=== PATIENT | female | born 1990 | race Caucasian/White ===

== ENCOUNTER 2018-08-20 06:53 | Day surgery (SDC) | payer OTHER ==
[2018-08-17 14:18] LABS: Absolute Lymphocytes (CBC) 1.7 K/uL (0.7-4.9); Basophils % 0.2 % (0-1.3); Eosinophils % 0.4 % (0-4.4); Hematocrit 44.7 % (36.0-45.0); Lymphocytes % 18.1 % (15.3-44.8); Monocytes % 5.2 % (3.3-12.3); RBC Red Blood Cell Count 4.79 M/uL (3.86-4.86)
[2018-08-17 14:22] LABS: Urine Appearance CLEAR; Urine Bilirubin NEGATIVE (NEG); Urine Blood NEGATIVE (NEG); Urine Color YELLOW; Urine Glucose NEGATIVE (NEG); Urine Protein NEGATIVE (NEG); Urine Specific Gravity 1.015 (1.005-1.030); Urine Urobilinogen 0.2 mg/dL (0.2-1.0); Urine pH 6.5 (5.0-7.0)
[2018-08-17 14:35] LABS: Urine Microscopic Reflex NO UMIC
--- OUTSIDE RECORDS SUMMARY | 2018-08-20 06:56 | XMS REPORT ---
:1990 [facility] Address [address] [place] [address] Dr. Sommers [address] [place] [id number] Care Team Providers Name Role Phone Unavailable Unavailable Unavailable Problems This patient has no known problems. Allergies, Adverse Reactions, Alerts This patient has no known allergies or adverse reactions. Medications This patient has no known medications.
[2018-08-20 07:10] LABS: Specific Gravity 1.025 (1.005-1.030)
[2018-08-20] MEDS ORDERED: NA CHLORIDE 0.9% 1,000 ML ONE (07:22)
[2018-08-20] MEDS ORDERED: PROPOFOL 200 MG/20 ML VIAL IV ONE (07:39)
[2018-08-20] MEDS ORDERED: ROCURONIUM 50 MG/5 ML VIAL IV ONE (07:39)
[2018-08-20] MEDS ORDERED: DEXAMETHASONE 10 MG/ML VIAL ONE (07:39)
[2018-08-20] MEDS ORDERED: FENTANYL CITR 250 MCG/5 ML ONE (07:39)
[2018-08-20] MEDS ORDERED: LIDOCAINE 2% MPF 5 ML VIAL ONE (07:39)
[2018-08-20] MEDS ORDERED: Ringers Lactate 1,000 ML IV ONE ×2 (07:41→09:53)
[2018-08-20] MEDS ORDERED: MIDAZOLAM HCL 2 MG/2 ML INJ ONE (07:42)
[2018-08-20] MEDS ORDERED: SCOPOLAMINE HYDROBROMIDE PATCH TD ONE (07:43)
[2018-08-20] MEDS: METHYLENE BLUE 0.5% 10 ML AMP ONE ×2 (09:39→09:45)
[2018-08-20] MEDS ORDERED: KETOROLAC 30 MG/ML INJ ONE (09:59)
[2018-08-20] MEDS ORDERED: Mastisol Adhesive Liq ONE (10:21)
[2018-08-20] MEDS: HYDROMORPHONE HCL 1 MG/ML INJ ONE ×4 (10:40→11:05)
[2018-08-20] MEDS ORDERED: IBUPROFEN 200 MG TAB PO ONE (12:01)
[2018-08-20] MEDS ORDERED: IBUPROFEN 400 MG TAB ONE (12:02)
--- NOTE | 2018-08-21 00:20 | OP ---
Date of Procedure: 08/20/2018 Surgeon: Starla Barakat MD Preoperative Diagnoses: Menorrhagia; dysmenorrhea; right lower quadrant pain; and right ovarian cyst , 4 cm. Postoperative Diagnoses: Menorrhagia, dysmenorrhea, right lower quadrant pain, left ovarian cyst, an d polycystic right ovary. Procedures Performed: Diagnostic hysteroscopy; diagnostic laparoscopy with lysis of adhesions of the sigmoid to the left round ligament; bilateral ovarian cysts; hemorrhagic left and right ovarian cyst , not consistent with endometriosis; left ovarian cyst removal; drainage of bilateral ovarian cysts; and chromotubation. Anesthesia: General endotracheal. Specimens: Left ovarian cyst contents. Complications: No complications. Drains: No drains. The patient's condition is stable. Findings: No endometriosis on close inspection of the entire pelvic peritoneum, posterior cul-de-sac , anterior cul-de-sac including the broad ligament anteriorly and posteriorly and both lateral arce and the anterior abdominal wall. The appendix appeared to be completely unremarkable. Both ovaries as described. Tubes patent without any dilation or hydrosalpinges when dilute methylene blue was inj ected. The patient's endometrial cavity was undistorted. Both tubal ostia were well visualized and the endo metrium appeared to be unremarkable. Indication: The patient is a 28-year-old, 0 and had constant relationship for about 7 years, complaining of right lower quadrant pain, seen in the ER prior to her new patient visit with me. Fo und to have a 4 cm hemorrhagic right ovarian cyst. Given the fact that the patient has pain and has persistent dysmenorrhea, occasional deep dyspareunia in midcycle time related to ovulation at times. Her periods have gotten slightly infrequent about every 2 to 3 months in the past few years after sh e has gained some weight. 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 On clinical evaluation at the initial visit when she followed up from her ER visit, there was a 5 cm right adnexal mass which was tender and there was tenderness to the exam in the right lower quadrant at the time without any significant rebound. However, on review of the imaging from the ER, she was found to have a complex cyst on the right ovary. Nothing else was visualized on the left. Also discussed about the options of treatment with this patient and she also complained of infertilit y primary without any significant medical problems with her or herself. Her plan was to [facility] observe with ovulation suppression since the pain is significant versus diagnostic laparoscopy to rule out endometriosis. She has significant family history of endometriosis in the maternal grandmot her and her sister, so this patient wants to pursue fertility using the contraceptive medication, was not an option for her. She preferred to proceed with surgical treatment. Diagnostic hysteroscopy was to confirm the cavity integrity and to make sure that there was no intrac avitary lesions. Sampling was not indicated in this patient at this time. She was also consented fo r diagnostic laparoscopy at the same time. If there is endometriosis present, then we would excise t hat as well. She was consented for ovarian cyst removal on the right ovary if present and chromotuba tion to see if any hydrosalpinges or blockage of tubes were contributing to her pain. This would also confirm the patency of the tubes, which could assist in her fertility efforts in the future. Procedure In Detail: After informed consent was verified, the patient was taken back to OR, placed i n a supine fashion on the operating table. After general anesthesia was given, she was placed in a d orsal lithotomy position. No antibiotics were given. SCDs were placed. Abdomen, vulva, vagina, and perineum were prepped and draped in a sterile fashion. A speculum was placed to expose the cervix. Anterior lip grasped with 2 Allis clamps. Diagnostic SlimLine hysteroscope was introduced. Cavity unremarkable. Endometrium unremarkable. Scope removed. Diagnostic VCare introduced. Hargrove introdu trice and attached to a drainage bag, this area was draped. A 1 cm infraumbilical incision was made al alina the old scar for her gallbladder. Fascia was incised, tagged with 0 Vicryl sutures, peritoneum e ntered sharply with the knife. S retractors placed inside the peritoneal cavity. Jonh introduced. Insufflation done adequately. The patient placed in T-[place]. A 5 mm suprapubic and left lower quadrant ports were placed. The upp er peritoneal surfaces were completely unremarkable. Liver unremarkable as well. Gallbladder was ab sent. No significant scar tissue seen. After patient was placed in T-[place], there was scar tissue fr om the sigmoid colon to the left round ligament, so these adhesions were taken down sharply with the help of laparoscopic scissors. Cauterization had to be performed in a couple of areas of the dissect ion in order to obtain hemostasis. Once this was done and it was excellent, I was able to visualize the tube. This had to be done in order for me to see the distal part of the left tube and once the e ntire adhesions were released and the tube was well visualized, then thorough irrigation and suction were performed, then inspection for endometriosis was done. 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 Sigmoid was visu alized. No evidence of any scar tissue or pockets here. Then, went on to check the left uterosacral ligament, left lateral wall, left posterior broad ligament, anterior broad ligament, and the area be tween the ovaries and the tubes, anterior cul-de-sac, both anterior surface of the broad ligaments an d the uterus. Tubes completely unremarkable. No endometriosis for excision. Appendix was visualize d completely all the way to its base, although with the longer appendix, no evidence of any inflammat ion, swelling, tumor, or endometriosis. The plan was to perform chromotubation. Methylene blue was diluted in 50 cc of normal saline, 1 vial and then injected 20 cc at a time. There was brisk filling and spilling on both tubes readily. Sli ght distortion of the tube on the right distal one-third. However, this did not amount to any hydros alpinx and there was very prompt spillage of methylene blue on the side. The ovarian cysts appeared to be bothersome to me, especially given the fact that patient has PCOS an d also is like infertility with q.3 month periods and given the fact that there was a cyst measurable , cyst present on the right side which was causing pain, wanted to make sure there was no ovarian end ometriosis and also probably help by draining the ovarian cyst in order to regulate her cycle at leas t on a short-term basis. Once this was determined, monopolar Storz needle was taken and went ahead a nd used this needle to open the left ovarian cyst with the tip of the needle. Once the cyst was open ed up at least 3 cm, I was able to scoop out the lining. This was not characteristic of an endometri blanca. However, there was bloody old fluid in it, which was drained, thoroughly irrigated and suction. [place] other small cysts were opened and drained with the tip of the needle. Similar dissection was p erformed on the right side. There was a small cyst that had to be opened up to ensure that there was no buried endometrioma. This was also hemorrhagic, but rest of the smaller follicles about 4 of the m were drilled open to drain them. Thorough irrigation and suction were performed. Interceed was us ed to wrap around both ovaries to prevent any adhesions on both sides. Once this was done, trocars w ere removed. Instrument, needle, and sponge counts were done and were correct at the end of the case . After removing the Jonh, site was closed with the help of 0 Vicryl at both ends to close the fas darius. Subcutaneous tissue was brought in with a simple 0 Vicryl stitch and subcutaneous sutures with a 4-0 Vicryl in an interrupted fashion. VCare Hargrove removed. The patient was cleaned up, recovered from anesthesia, and taken to PACU in stable condition. Instrument and sponge counts correct. AUGUSTINE diaz inimal. ELIEZER/LUCY Voice ID: [id number] Report ID: [id number]
== END 2018-08-20 12:37 | disposition home or self-care (01) ==
LOC: OR 06:53
PROVIDERS: ATTEND Obstetrics & Gynecology
PROC: 3E0P8KZ Introduction of Other Diagnostic Substance into Female Reproductive, Via Natural or Artificial Opening Endoscopic (ICD-10-PCS; 2018-08-20)
PROC: 0UB14ZZ Excision of Left Ovary, Percutaneous Endoscopic Approach (ICD-10-PCS; principal; 2018-08-20 08:30)
DX: N83.202 Unspecified ovarian cyst, left side (principal); N83.201 Unspecified ovarian cyst, right side; N73.6 Female pelvic peritoneal adhesions (postinfective)
CPT/HCPCS: 36415; 81003; 81025; 85025; 86850; 86900; 86901; 88304; 88305; J1100; J1170; J2250; J2704; J3010; J7030